=== PATIENT | female | born 1975 | race Caucasian/White ===

== ENCOUNTER 2016-09-14 19:47 | Outpatient (CLI) | payer MEDICAID | END 2016-09-14 19:48 | disposition home or self-care (01) | DX: R60.0 Localized edema (principal) ==

== ENCOUNTER 2016-09-22 10:35 | Outpatient (CLI) | payer MEDICAID | END 2016-09-22 10:36 | disposition home or self-care (01) | DX: R53.83 Other fatigue (principal); E78.5 Hyperlipidemia, unspecified; Z83.3 Family history of diabetes mellitus ==

== ENCOUNTER 2016-09-29 19:11 | Outpatient (CLI) | payer MEDICAID | END 2016-09-29 19:12 | disposition home or self-care (01) | DX: N83.201 Unspecified ovarian cyst, right side (principal); N94.89 Other specified conditions associated with female genital organs and menstrual cycle; D25.1 Intramural leiomyoma of uterus ==

== ENCOUNTER 2016-10-28 10:57 | Outpatient (CLI) | payer MEDICAID ==
[2016-10-28 19:52] LABS: FOLLICLE STIMULATING HORMONE 13.34 mIU/mL
[2016-10-28 19:53] LABS: LUTEINIZING HORMONE 7.85 mIU/mL
== END 2016-10-28 10:58 ==
LOC: LAB.N 10:57
PROVIDERS: ATTEND Obstetrics & Gynecology
DX: E28.310 Symptomatic premature menopause (principal)
CPT/HCPCS: 36415; 82670; 83001; 83002

== ENCOUNTER 2017-02-21 21:27 | Observation (INO) | payer MEDICAID ==
[2017-02-21] MEDS ORDERED: SODIUM CHLORIDE 0.9% 1,000 ML IV ONE (22:12)
[2017-02-21] MEDS ORDERED: KETOROLAC 60 MG/2 ML VIAL IVP STA (22:12)
[2017-02-21] MEDS ORDERED: ONDANSETRON 4 MG/2 ML VIAL IVP STA (22:12)
--- NOTE | 2017-02-21 22:16 | ED Physician Documentation ---
PD HPI ABD PAIN - Stated complaint Stated Complaint: RIB PX - Chief complaint Chief Complaint: Abd Pain - History obtained from History obtained from: Patient, Family - History of Present Illness Timing - onset: Enter time (0600), Today Timing - duration: Hours Timing - details: Abrupt onset, Still present Quality: Sharp, Pain Location: RUQ Radiation: Upper back Improved by: Laying still Worsened by: Eating, Moving, Position, Palpation Associated symptoms: Nausea, Vomiting. No: Fever Similar symptoms before: Diagnosis (gallstones) Recently seen: Not recently seen - Additional information Additional information: 41-year-old female has known about some gallstones for about 10 years. She has had episodes of pain but usually only last hours and today she awoke at 06:00 with pain in the right upper quadrant that is persisted all day. She did try to eat something today and vomited that abruptly. Review of Systems Constitutional: reports: Myalgias, Fatigue. denies: Fever Eyes: denies: Decreased vision Ears: denies: Ear pain Nose: denies: Rhinorrhea / runny nose, Congestion Throat: denies: Sore throat Cardiac: denies: Chest pain / pressure, Palpitations Respiratory: denies: Dyspnea, Cough GI: reports: Abdominal Pain, Nausea, Vomiting. denies: Constipation, Diarrhea : denies: Dysuria, Frequency Skin: denies: Rash Musculoskeletal: reports: Back pain. 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 - Present Medications Home Medications: Ambulatory Orders Medication Instructions Recorded Confirmed Meloxicam [Mobic] 7.5 mg PO DAILY 02/21/17 02/21/17 - Allergies Allergies/Adverse Reactions: Allergies Allergy/AdvReac Type Severity Reaction Status Date / Time latex Allergy Rash Verified 02/21/17 21:35 - Social History Does the pt smoke?: No Smoking Status: Never smoker Does the pt have substance abuse?: No - Immunizations Immunizations are current?: Yes - POLST Patient has POLST: No PD ED PE NORMAL - Vitals Vital signs reviewed: Yes (hypertensive) - General General: Alert and oriented X 3, No acute distress, Well developed/nourished - HEENT HEENT: Atraumatic, PERRL - Neck Neck: Supple, no meningeal sign - Cardiac Cardiac: RRR, No murmur - Respiratory Respiratory: No respiratory distress, Clear bilaterally - Abdomen Abdomen: Soft, Other (There is specific right upperquadrant pain to palpation and palpation makes the patient's symptoms much worse. She is quite uncomfortable after interrogation. ) - Back Back: No CVA TTP, No spinal TTP - Derm Derm: Normal color, Warm and dry, No rash - Extremities Extremities: No deformity, No edema - Neuro Neuro: Alert and oriented X 3, No motor deficit, No sensory deficit, Normal speech - Psych Psych: Normal mood, Normal affect Results - Vitals Vitals: Vital Signs - 24 hr 02/21/17 21:32 Temperature 36.6 C Heart Rate 80 Respiratory 18 Rate Blood Pressure 138/89 H O2 Saturation 98 Oxygen O2 Source Room air - Labs Labs: Laboratory Tests 02/21/17 02/21/17 02/21/17 21:50 21:50 22:56 WBC 8.3 RBC 5.33 Hgb 16.2 H Hct 47.8 H MCV 89.8 MCH 30.4 MCHC 33.9 RDW 13.3 Plt Count 191 MPV 9.0 Neut # 3.9 Lymph # 3.5 Navarro # 0.7 Eos # 0.1 Baso # 0.1 Absolute Nucleated RBC 0.01 Nucleated RBCs 0.1 Sodium 141 Potassium 3.6 Chloride 106 Carbon Dioxide 28 Anion Gap 7.0 BUN 19 Creatinine 0.7 Estimated GFR (MDRD) 92 Glucose 97 Calcium 9.3 Total Bilirubin 0.5 AST 24 ALT 29 Alkaline Phosphatase 43 Total Protein 7.6 Albumin 4.9 Globulin 2.7 Albumin/Globulin Ratio 1.8 Lipase 27 Urine Color YELLOW Urine Clarity TURBID Urine pH 6.0 Ur Specific [place] >=1.030 H Urine Protein NEGATIVE Urine Glucose (UA) NEGATIVE Urine Ketones 15 H Urine Occult Blood SMALL H Urine Nitrite NEGATIVE Urine Bilirubin NEGATIVE Urine Urobilinogen 0.2 (NORMAL) Ur Leukocyte Esterase NEGATIVE Urine RBC 0-5 Urine WBC 0-3 Ur Squamous Epith Cells FEW Squamous Amorphous Sediment Marked Urine Bacteria Rare Ur Microscopic Review INDICATED Urine Culture Comments NOT INDICATED Urine HCG, Qual NEGATIVE - Rads (name of study) u/s abd lmt Radiology: Prelim report reviewed (Impression: 1. Acute cholecystitis. No biliary dilation. Moderate hepatic steatosis and at least mild hepatomegaly.), EMP read indepedently, See rad report Procedures - Bedside sono Bedside sono by EMP: With use of bedside ultrasound the gallbladder is examined and there is evidence of stones without gallbladder wall thickening or pericholecystic fluid. PD MEDICAL DECISION MAKING - ED course Complexity details: reviewed results, re-evaluated patient, considered differential, d/w patient, d/w family ED course: 41-year-old female with acute right upper quadrant pain that is persisted all day has a history of gallstones and she has had episodes previously that only lasted hours. Today she has a very sensitive tender right upper quadrant and formal ultrasound demonstrates the pericholecystic fluid and gallbladder wall thickening. The examination is consistent with acute cholecystitis and Dr. Colton Mcdonald is consulted in the case and will care for the patient in the hospital. She recommends Unasyn intravenously. Departure - Departure Disposition: ED Place in Observation Clinical Impression: Cholecystitis Condition: Stable Discharge Date/Time: 02/22/17 03:04
[2017-02-21] MEDS ORDERED: ONDANSETRON 4 MG/2 ML VIAL ONE (22:18)
[2017-02-21] MEDS ORDERED: KETOROLAC 30 MG/ML VIAL ONE (22:18)
[2017-02-21 22:27] LABS: BASOPHILS # (AUTO) 0.1 10^3/uL (0.0-0.1); BASOPHILS % (AUTO) 0.6 %; EOSINOPHILS # (AUTO) 0.1 10^3/uL (0.0-0.7); EOSINOPHILS % (AUTO) 1.3 %; HCT - HEMATOCRIT 47.8 % (37.0-47.0); HGB - HEMOGLOBIN 16.2 g/dL (12.0-16.0); LYMPHOCYTES # (AUTO) 3.5 10^3/uL (1.5-3.5); LYMPHOCYTES % (AUTO) 42.4 %; MEAN CORPUSCULAR HEMOGLOBIN 30.4 pg (27.0-31.0); MEAN CORPUSCULAR HGB CONC 33.9 g/dL (32.0-36.0); MEAN CORPUSCULAR VOLUME 89.8 fL (81.0-99.0); MONOCYTES # (AUTO) 0.7 10^3/uL (0.0-1.0); MONOCYTES % (AUTO) 8.8 %; NEUTROPHILS # (AUTO) 3.9 10^3/uL (1.5-6.6); NEUTROPHILS % (AUTO) 46.9 %; NUCLEATED RED BLOOD CELLS AUTO 0.1 /100WBC; RED BLOOD COUNT 5.33 10^6/uL (4.20-5.40); RED CELL DISTRIBUTION WIDTH 13.3 % (12.0-15.0); UNCORRECTED WHITE BLOOD COUNT 8.3 x10^3/uL; WHITE BLOOD COUNT 8.3 x10^3/uL (4.8-10.8)
[2017-02-21 22:37] LABS: ALBUMIN/GLOBULIN RATIO 1.8 (1.0-2.2); BILIRUBIN,TOTAL 0.5 mg/dL (0.2-1.0); CALCIUM 9.3 mg/dL (8.5-10.3); CREATININE 0.7 mg/dL (0.4-1.0); POTASSIUM 3.6 mmol/L (3.5-5.0); TOTAL PROTEIN 7.6 g/dL (6.7-8.2)
[2017-02-21] MEDS ORDERED: HYDROmorphone 1 MG/ML CARPUJECT IVP STA (23:14)
[2017-02-21] MEDS ORDERED: HYDROmorphone 1 MG/ML CARPUJECT ONE (23:21)
--- NOTE | 2017-02-21 23:34 | Ultrasound Preliminary Report ---
Exam: US Abdomen Limited IMPRESSION: 1. Acute cholecystitis. 2. No biliary dilation. 3. Moderate hepatic steatosis and at least mild hepatomegaly. [facility] SITE ID: [id number]
--- NOTE | 2017-02-21 23:37 | Ultrasound Report ---
EXAM: ABDOMEN ULTRASOUND LIMITED, RUQ EXAM DATE: 02/21/2017 11:15 PM. CLINICAL HISTORY: Right upper quadrant pain COMPARISON: None. TECHNIQUE: Real-time scanning was performed with static images obtained. FINDINGS: Patient body habitus compromises exam sensitivity and specificity. Liver: Moderate increased echogenicity. No suspicious focal lesion. Liver measures 17.7 cm in length. Portal Vein: Patent with hepatopetal flow. Gallbladder: Multiple calcified gallstones are present. Areas of apparent wall thickening. Positive s onographic Hooper sign. Pericholecystic fluid is present. Biliary System: CBD measures 3.4 mm. No intrahepatic or extrahepatic ductal dilatation. Pancreas: Suboptimally visualized due to body habitus. Right Kidney: Visualized portions of the right kidney are without significant abnormality. Right kid chico measures 9.9 cm in length. Other: None. IMPRESSION: 1. Acute cholecystitis. 2. No biliary dilation. 3. Moderate hepatic steatosis and at least mild hepatomegaly. [facility] Referring Provider Line: [phone] SITE ID: [id number]
[2017-02-21 23:40] LABS: BILIRUBIN,URINE NEGATIVE (NEGATIVE); HCG UR QUAL NEGATIVE; UA w/ MICROSCOPIC CHARGE YES
[2017-02-21 23:41] LABS: UR CULTURE IF IND NOT INDICATED; WBC,URINE 0-3 /HPF (0-5)
[2017-02-22] MEDS ORDERED: ONDANSETRON 4 MG/2 ML VIAL IVP PRN (00:47)
[2017-02-22] MEDS ORDERED: AMPICILLIN/SULBACTAM 3 GM in SODIUM CHLORIDE 0.9% MINIBAG 100 ML IV STA (00:47)
[2017-02-22] MEDS ORDERED: SODIUM CHLORIDE FLUSH 0.9% 10 ML SYRINGE IVP PRN (00:47)
[2017-02-22] MEDS ORDERED: ACETAMINOPHEN 325 MG TABLET PO PRN (00:47)
[2017-02-22] MEDS ORDERED: SODIUM CHLORIDE 0.9% 20 ML ONE (01:20)
[2017-02-22] MEDS ORDERED: SODIUM CHLORIDE 0.9% MINIBAG 100 ML IV ONE (01:20)
[2017-02-22] MEDS: LACTATED RINGERS 1,000 ML IV SCH ×2 (01:50→12:50)
[2017-02-22] MEDS: AMPICILLIN/SULBACTAM 3 GM in SODIUM CHLORIDE 0.9% MINIBAG 100 ML IV SCH ×4 (01:50→18:00)
[2017-02-22] MEDS: MORPHINE 2 MG/ML SYRINGE IVP PRN ×4 (02:40→12:49)
[2017-02-22] MEDS: SODIUM CHLORIDE FLUSH 0.9% 10 ML SYRINGE IVP SCH ×2 (06:01→12:49)
[2017-02-22] MEDS ORDERED: POLYETHYLENE GLYCOL 3350 17 GM PACKET PO SCH (09:00)
[2017-02-22] MEDS ORDERED: FAMOTIDINE 20 MG TABLET PO SCH (09:00)
--- NOTE | 2017-02-22 16:03 | HISTORY & PHYSICAL EXAMINATION ---
DATE OF ADMISSION: 02/22/2017 REASON FOR ADMISSION: Abdominal pain. HISTORY OF PRESENT ILLNESS: This is a 41-year-old female who presented to the emergency department with a 1 day history of right upper quadrant abdominal pain associated with nausea and vomiting. She states that she has had multiple episodes in the past; however, these were never as severe and never persisted as long. Upon evaluation in the emergency department, laboratory workup was performed, which demonstrated a normal white blood cell count and normal LFTs. An ultrasound of the right upper quadrant was performed, which demonstrated multiple calcified gallstones with gallbladder wall thickening and a positive sonographic Hooper sign with pericholecystic fluid. The common bile duct measured 3.4 mm with no intrahepatic or extrahepatic ductal dilatation. These findings are consistent with acute cholecystitis. A surgical consultation was obtained. Upon my evaluation of the patient, she is continuing to have pain despite pain medications and bowel rest. PAST MEDICAL HISTORY: Significant for depression and multiple orthopedic injuries. PAST SURGICAL HISTORY: Biceps tendon repair and section. HOME MEDICATIONS: Meloxicam 7.5 mg daily. ALLERGIES TO MEDICATIONS: LATEX. SOCIAL HISTORY: The patient smokes 6-7 cigarettes per day. She drinks a moderate amount of alcohol. She denies any illicit drug use. She smokes occasional marijuana. PHYSICAL EXAMINATION VITAL SIGNS: The patient's BMI is 44.4. Temperature is 36.3, blood pressure 105/ 60, heart rate is 55, respiratory rate 18 and O2 saturation is 97% on room air. GENERAL: She is awake, alert, oriented x3, in no acute distress. She is obese. CARDIOVASCULAR: Regular rate and rhythm. CHEST: Clear to auscultation bilaterally with no rhonchi or wheezing. ABDOMEN: Soft and nondistended. She is tender to palpation in the right upper quadrant with no guarding and no rebound tenderness. EXTREMITIES: Are nonedematous. LABORATORY VALUES: White count is 8.3, hemoglobin 16, hematocrit 47, platelets 191. Sodium 141, potassium 3.6, chloride 106, bicarbonate 28, BUN 19, creatinine 0.7, total bilirubin 0.5, AST 24, ALT 29, alkaline phosphatase 43, lipase 27. UA is negative. ASSESSMENT: This is a 41-year-old female with acute cholecystitis. PLAN: The patient is admitted for observation, and if her pain does not improve , then she will be taken to the operating room for laparoscopic cholecystectomy. The procedure was explained to the patient in detail, including potential risks involved including, but not limited to, bleeding, infection, damage to intraabdominal organs, including her small bowel and common bile duct. She understands all of the above and agrees to proceed with surgery. She will be placed on Unasyn in the interim and be kept n.p.o. JOB #: [id number] EXT JOB #:[id number] ROLF
[2017-02-22] MEDS ORDERED: MIDAZOLAM 2 MG/2 ML VIAL IVP ONE (16:14)
[2017-02-22] MEDS ORDERED: fentaNYL 100 MCG/2 ML VIAL IVP ONE ×2 (16:14→17:20)
[2017-02-22] MEDS ORDERED: DEXAMETHASONE 4 MG/ML VIAL IVP ONE (16:14)
[2017-02-22] MEDS ORDERED: PROPOFOL 200 MG/20 ML VIAL IVP ONE (16:14)
[2017-02-22] MEDS ORDERED: ACETAMINOPHEN 1,000 MG/100 ML 100 ML IV ONE (16:14)
[2017-02-22] MEDS ORDERED: GLYCOPYRROLATE 1 MG/5 ML VIAL IVP ONE (16:14)
[2017-02-22] MEDS ORDERED: LACTATED RINGERS 1,000 ML IV ONE ×2 (16:14→17:40)
[2017-02-22] MEDS ORDERED: LIDOCAINE-MPF 2% 5 ML VIAL IM ONE (16:14)
[2017-02-22] MEDS ORDERED: BUPIVACAINE 0.5%-EPI 1:200000 PF 30 ML VIAL SUBQ ONE (16:14)
[2017-02-22] MEDS ORDERED: ONDANSETRON 4 MG/2 ML VIAL IVP ONE (16:14)
[2017-02-22] MEDS ORDERED: ceFAZolin 1 GM VIAL IV ONE (16:14)
[2017-02-22] MEDS ORDERED: ROCURONIUM 50 MG/5 ML VIAL IVP ONE (16:14)
[2017-02-22] MEDS ORDERED: NEOSTIGMINE 1 MG/1 ML 10 ML MDV IVP ONE (16:14)
--- NOTE | 2017-02-22 16:52 | Discharge Plan ---
Discharge Plan Disposition: 01 Home, Self Care Condition: Stable Diet: Regular Activity Restrictions: see handout No Smoking: If you smoke, Please STOP! Call for help. Follow-up with: TIFFANI FRANKLIN MD [Provider Admit Priv/Credential] - 4 Weeks
[2017-02-22] MEDS: HYDROmorphone 1 MG/ML CARPUJECT ONE ×2 (17:47→18:00)
[2017-02-22] MEDS ORDERED: oxyCOD/ACETAMIN 5 MG/325 MG TABLET PO PRN (18:48)
[2017-02-22 20:31] VITALS: BP 121/91
--- NOTE | 2017-03-01 10:58 | PROVIDER PROGRESS NOTE ---
Subjective - Prog Note Date Prog Note Date: 02/22/17 Objective - Vital Signs/Intake & Output Reviewed Vital Signs: Yes - Objective Respiratory: positive: No respiratory distress Cardiovascular: positive: Regular rate & rhythm Abdomen: positive: Non-tender, No distention Extremities: positive: Full ROM, No pedal edema Neurologic/Psychiatric: positive: Oriented x3 - Lab Results Fish Bones: 02/21/17 21:50 02/21/17 21:50 Assessment/Plan - Problem List (1) Cholecystitis Impression: s/p lap elizabeth for acute cholecystitis - discharge to home in stable condition.
--- NOTE | 2017-03-12 03:17 | OPERATIVE REPORT ---
DATE OF SURGERY: 02/22/2017 00:00:00 SURGEON: Allyn Mcdonald MD. PREOPERATIVE DIAGNOSIS: Biliary colic/acute cholecystitis. POSTOPERATIVE DIAGNOSIS: Acute cholecystitis. NAME OF PROCEDURE: Laparoscopic cholecystectomy. FINDINGS: After obtaining informed consent from the patient, she was brought into the operating room and positioned on the operating table in the supine position, taking note of pressure points. The pat ient was intubated by Anesthesia. She was administered perioperative antibiotics. She was prepped and draped in the usual sterile fashion and a time-out was taken according to protocol. An infraumbilica l 1 cm incision was created and deepened down to the umbilical stalk. This was grasped and elevated, and the Veress needle inserted. The abdominal cavity was insufflated. A 5 mm incision was created to the right of the epigastric region and the Optiview trocar inserted at this location. The Veress need le was then removed and a 12 mm port placed. Two additional 5 mm ports were placed in the patient's r ight lateral abdominal wall. The gallbladder was grasped and retracted over the dome of the liver. It was noted to be inflamed. The drainage catheter was then utilized to drain fluid from the gallbladde r. Approximately 60 mL of bilious fluid was removed. The base of the gallbladder was grasped and retr acted medially exposing the lateral attachments. These were taken down with electrocautery. I worked my way anteriorly and then medially. The cystic artery and duct were then circumferentially dissected out from surrounding tissue. The base of the gallbladder was transected from the gallbladder fossa. The critical view was obtained. Two clips were placed on the cystic duct proximally, 1 distally, and it was divided. The cystic artery was divided in a similar manner. The gallbladder was then transecte d from the gallbladder fossa with electrocautery. There was no spillage of bile or stones during this process. The gallbladder was then placed in a specimen bag and removed through the umbilical port. T he liver bed was then inspected for signs of bleeding and none were noted. The umbilical port site wa s then closed with a [id number] 0 Vicryl suture. The abdominal cavity was allowed to desufflate. The skin incisions were closed 4-0 Monocryl. The patient was extubated and taken to the recovery nancy in stable condition. ESTIMATED BLOOD LOSS: Minimal. COMPLICATIONS: None. SPECIMEN: Gallbladder. JOB #: [id number] EXT JOB #:[id number]
== END 2017-02-22 21:29 | disposition home or self-care (01) ==
LOC: ED 21:27 → OBS 02-22 00:47
PROVIDERS: ADMIT Surgery; ATTEND Surgery
PROC: 0FT44ZZ Resection of Gallbladder, Percutaneous Endoscopic Approach (ICD-10-PCS; principal; 2017-02-21)
DX: K80.12 Calculus of gallbladder with acute and chronic cholecystitis without obstruction (principal); E66.9 Obesity, unspecified; Z68.41 Body mass index [BMI] 40.0-44.9, adult; F17.210 Nicotine dependence, cigarettes, uncomplicated; F32.9 Major depressive disorder, single episode, unspecified; M19.90 Unspecified osteoarthritis, unspecified site
CPT/HCPCS: 36415; 47562; 76705; 80053; 81001; 81025; 83690; 85025; 88304; 96361; 96365; 96366; 96375; 96376; 99218; 99283; 99284; 99406; A9270; J0131; J1170; J2270; J7120; 81003; 87086; 96374

== ENCOUNTER 2017-06-08 17:20 | Emergency (ER) | payer MEDICAID ==
[2017-06-08 17:32] VITALS: BP 166/96
[2017-06-08 18:03] LABS: BILIRUBIN,URINE NEGATIVE (NEGATIVE); GLUCOSE, URINE (UA) NEGATIVE (NEGATIVE); KETONES,URINE (UA) NEGATIVE (NEGATIVE); LEUKOCYTE ESTERASE, URINE MODERATE (NEGATIVE); NITRITE,URINE NEGATIVE (NEGATIVE); OCCULT BLOOD,URINE MODERATE (NEGATIVE); PH,URINE 6.5 PH (5.0-7.5); PROTEIN,URINE NEGATIVE (NEGATIVE); UROBILINOGEN,URINE 0.2 (NORMAL) E.U./dL (NORMAL)
[2017-06-08 18:14] LABS: CLARITY,URINE HAZY (CLEAR)
[2017-06-08 18:19] LABS: HCG UR QUAL NEGATIVE
[2017-06-08 18:27] LABS: BACTERIA,URINE Few /HPF (None Seen); SQUAMOUS EPITHELIAL CELL,UR FEW Squamous (<= Few)
--- NOTE | 2017-06-08 18:30 | ED Physician Documentation ---
PD HPI FEMALE - Stated complaint Stated Complaint: FEMALE - Chief complaint Chief Complaint: Abd Pain - History obtained from History obtained from: Patient, Friend - History of Present Illness Timing - onset: How many days ago (5) Timing - duration: Days (5) Timing - details: Gradual onset, Still present Associated symptoms: Dysuria, Urinary frequency Contributing factors: Sexually active Similar symptoms before: Diagnosis (UTI) Recently seen: Not recently seen - Additional information Additional information: 41-year-old female who has had urinary urgency frequency and dysuria for the past 5 days has worsening of her symptoms despite taking cranberry pills and Azo. She is here in the emergency department wiggling her legs back and forth and discomfort. Review of Systems Constitutional: denies: Fever, Chills, Myalgias Nose: denies: Congestion Throat: denies: Sore throat Respiratory: denies: Cough GI: reports: Nausea. 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 - Present Medications Home Medications: Ambulatory Orders Medication Instructions Recorded Confirmed Meloxicam [Mobic] 7.5 mg PO DAILY 02/21/17 06/08/17 Sulfamethoxazole/Trimethoprim 1 each PO BID #10 tablet 06/08/17 [Sulfamethoxazole-Tmp Ds Tablet] - Allergies Allergies/Adverse Reactions: Allergies Allergy/AdvReac Type Severity Reaction Status Date / Time latex Allergy Rash Verified 06/08/17 17:30 - Social History Does the pt smoke?: No Smoking Status: Never smoker Does the pt have substance abuse?: No - Immunizations Immunizations are current?: Yes - POLST Patient has POLST: No PD ED PE NORMAL - Vitals Vital signs reviewed: Yes (hypertensive ) - General General: Alert and oriented X 3, Well developed/nourished, Other (The patient appears irritated with her legs wiggling back and forth-- she looks like she has a UTI) - HEENT HEENT: Atraumatic, PERRL - Respiratory Respiratory: No respiratory distress - Back Back: No CVA TTP, No spinal TTP - Derm Derm: Normal color, Warm and dry, No rash - Extremities Extremities: No deformity, No edema - Neuro Neuro: No motor deficit, No sensory deficit Eye Opening: Spontaneous Motor: Obeys Commands Verbal: Oriented GCS Score: 15 - Psych Psych: Normal mood, Normal affect Results - Vitals Vitals: Oxygen O2 Source Room air - Labs Labs: Microbiology 06/08/17 17:55 Urine Culture - Final Urine,Clean Catch Escherichia Coli Laboratory Tests 06/08/17 17:55 Urine Color YELLOW Urine Clarity HAZY Urine pH 6.5 Ur Specific [place] <=1.005 Urine Protein NEGATIVE Urine Glucose (UA) NEGATIVE Urine Ketones NEGATIVE Urine Occult Blood MODERATE H Urine Nitrite NEGATIVE Urine Bilirubin NEGATIVE Urine Urobilinogen 0.2 (NORMAL) Ur Leukocyte Esterase MODERATE H Urine RBC 11-25 H Urine WBC >25 H Ur Squamous Epith Cells FEW Squamous Urine Bacteria Few Ur Microscopic Review INDICATED Urine Culture Comments INDICATED Urine HCG, Qual NEGATIVE PD MEDICAL DECISION MAKING - ED course Complexity details: considered differential, d/w patient ED course: 41 y/o female with UTI Departure - Departure Disposition: 01 Home, Self Care Clinical Impression: Urinary tract infection Qualifiers: Urinary tract infection type: acute cystitis Hematuria presence: with hematuria Qualified Code(s): N30.01 - Acute cystitis with hematuria Condition: Stable Instructions: ED UTI Cystitis Female Follow-Up: Donell Rodarte PA-C [Primary Care Provider] - Prescriptions: Sulfamethoxazole/Trimethoprim [Sulfamethoxazole-Tmp Ds Tablet] 1 each PO BID # 10 tablet Discharge Date/Time: 06/08/17 18:40
== END 2017-06-08 18:40 | disposition home or self-care (01) ==
LOC: ED 17:20
DX: N30.01 Acute cystitis with hematuria (principal); I10 Essential (primary) hypertension; M19.90 Unspecified osteoarthritis, unspecified site
CPT/HCPCS: 81001; 81003; 81025; 87086; 99283

== ENCOUNTER 2017-09-22 18:50 | Emergency (ER) | payer MEDICAID ==
--- NOTE | 2017-09-22 19:34 | ED Physician Documentation ---
PD HPI LOWER EXT INJURY - Stated complaint Stated Complaint: KNEE INJURY - Chief complaint Chief Complaint: Trauma Ext - History obtained from History obtained from: Patient - History of Present Illness PD HPI LOW EXT INJURY LOCATION: Other (Walking on a wet deck 6 days ago, her foot inverted and she twisted her knee and has persistent worsening internal knee pain on the right ever since. Now with difficulty walking. 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 - Present Medications Home Medications: Ambulatory Orders Medication Instructions Recorded Confirmed Meloxicam [Mobic] 7.5 mg PO DAILY 02/21/17 06/08/17 - Allergies Allergies/Adverse Reactions: Allergies Allergy/AdvReac Type Severity Reaction Status Date / Time latex Allergy Rash Verified 09/22/17 18:56 - Social History Does the pt smoke?: No Smoking Status: Never smoker Does the pt have substance abuse?: No - Immunizations Immunizations are current?: Yes - POLST Patient has POLST: No PD ED PE NORMAL - Vitals Vital signs reviewed: Yes - General General: Alert and oriented X 3, No acute distress - Extremities Extremities: Other (Right knee is without significant effusion, it is kind of diffusely tender. Ligamentous testing is normal, no laxity, but she does have pain with MCL testing. She also has significant grind testing.) - Neuro Neuro: Alert and oriented X 3, Normal speech Results - Vitals Vitals: Vital Signs - 24 hr 09/22/17 18:53 Temperature 36.4 C L Heart Rate 94 Respiratory 15 Rate Blood Pressure 144/94 H O2 Saturation 99 Oxygen O2 Source Room air - Rads (name of study) R knee XR Radiology: EMP read contemporaneously (There is an effusion and also a distal femoral exostosis.) Departure - Departure Disposition: 01 Home, Self Care Clinical Impression: Injury of meniscus of knee Qualifiers: Encounter type: initial encounter Laterality: right Qualified Code(s): S83.8X1A - Sprain of other specified parts of right knee, initial encounter Condition: Good Record reviewed to determine appropriate education?: Yes Instructions: ED Meniscal Injury Knee Poss Comments: Wear the splint as needed especially while up and around, he do not have to wear it while sleeping or while showering. Tylenol or ibuprofen as needed for pain. Return if worse. Follow-up with your doctor or an orthopedic surgeon for follow-up. Your blood pressure was elevated today on check into the emergency department. This does not mean that you have hypertension, it is a common phenomenon to come to the emergency department and have elevated blood pressure. I recommend that you see your primary care physician within the week to have it rechecked when you are feeling better.
--- NOTE | 2017-09-22 20:05 | XRAY Preliminary Report ---
Exam: XR KNEE 4 VIEW RT IMPRESSION: 1. No acute bony abnormality. 2. Moderate effusion. 3. 3 x 2 cm exostosis distal femoral metaphysis. [facility] SITE ID: [id number]
--- NOTE | 2017-09-22 20:07 | XRAY Report ---
EXAM: RIGHT KNEE RADIOGRAPHY EXAM DATE: 09/22/2017 07:52 PM. CLINICAL HISTORY: Persistent pain since a twisting injury 6 days ago. COMPARISON: None. TECHNIQUE: 4 views. FINDINGS: Bones: 3 x 2 cm exostosis posterior medial aspect distal femoral metaphysis. Trabecular and cortical patterns are intact. Joints: Moderate joint effusion. No bony degenerative changes. Soft Tissues: Normal. No soft tissue swelling. IMPRESSION: 1. No acute bony abnormality. 2. Moderate effusion. 3. A 3 x 2 cm exostosis distal femoral metaphysis. [facility] Referring Provider Line: [phone] SITE ID: [id number]
[2017-09-23 02:53] VITALS: BP 141/78
== END 2017-09-22 20:30 | disposition home or self-care (01) ==
LOC: ED 18:50
DX: S83.8X1A Sprain of other specified parts of right knee, initial encounter (principal); X50.1XXA Overexertion from prolonged static or awkward postures, initial encounter; I10 Essential (primary) hypertension; M19.90 Unspecified osteoarthritis, unspecified site
CPT/HCPCS: 99283